=== PATIENT | female | born 1935 | race Caucasian/White ===

== ENCOUNTER 2023-06-06 04:32 | Day surgery (SDC) | payer MEDICARE, OTHER, SELFPAY ==
[2023-06-04 09:22] VITALS: BMI 27.9
--- NOTE | 2023-06-04 09:28 | PC.NURSE ---
Report to the Outpatient Waiting Room, entrance under the green pavilion located off [facility], at time ___0700____ on date __06/06/23 . Planned Procedure Time: ___0900 . Time changes happen often and if your time is changed the preop area will call you the afternoon before. - You and your visitor will be asked to self-screen and do not enter if you have any COVID symptoms. - A mask is optional within the hospital at this time. Patients may have clear liquids (water, carbonated beverages, clear teas, apple juice) until 3 hours prior to surgery (0600 AM) with a maximum of 20 ounces. - No food from midnight until time of surgery - Infants may have breast milk until 4 hours before surgery, formula 6 hours prior to surgery. - Children will be allowed to drink immediately following surgery. If applicable, please bring a bottle or sippy cup to assist with drinking. Juice, water, soda, and popsicles are readily available. For infants on formula, please bring formula the day of surgery. Pacifiers are allowed. Take the following medications with a SIP of water the morning of surgery: _AMLODIPINE, CITALOPRAM, METOPROLOL_ DO NOT STOP ANY OF YOUR OTHER PRESCRIPTION MEDICATIONS PRIOR TO SURGERY ?EXCEPT THE FOLLOWING Medications to discontinue per physician _PT STATES TO CONTINUE ASPIRIN PER DR. RODRIGUEZ_ Medications to discontinue per ANESTHESIA - _MULTIVITAMIN & SUPPLEMENTS OF TODAY Date to take last dose 06/04/23 Please no make-up, nail somali, hairspray, perfume, deodorant, or body powder the day of surgery. No jewelry (including any body piercings) or valuables the day of surgery, leave them at home. Please take a shower or bath the night before, or the morning of, surgery with an antibacterial soap. Wear comfortable, loose fitting clothing. Children are encouraged to wear pajamas. - Jewelry must be removed prior to entering the operating room. Rings and piercings that are not removed may be cut off. - The hospital will not accept responsibility for valuables. - Please leave all valuables, including medications, at home the day of surgery. If you are going home after surgery, a licensed caterpillar driver must drive you home. - NO public transportation without another adult if you receive anesthesia. - We recommend that an adult stay with you for 24 hours following discharge. - We also recommend that you do not drive, make important decision, drink alcoholic beverages, or take any drugs that were not prescribed by your health care provider for at least 24 hours after your discharge time. For Pediatric surgeries, we recommend two adults accompany the child home. Follow any additional instructions given to you from your surgeon. If you or anyone in your household have experienced Covid symptoms in the past week, please notify your surgeon or the nurse liaison at the phone number below for possible testing. Telephone instructions given to __PT__and asked if any additional questions and then verbalized understanding. Patient advised to call surgeon office or pre surgery nurse liaison [phone] if any additional questions.
[2023-06-06] VITALS (8 sets, daily range): BP systolic 127–175; BP diastolic 50–63; PULSE 54–64; RESP 12–18; TEMP 36.8–36.9; O2SAT 93–96
--- NOTE | 2023-06-06 07:15 | WPDHPUPDATE1 ---
History and Physical Update Update Date/Time: 06/06/23 07:15 History and Physical has been reviewed, including an updated exam of the patient. There are NO changes in the patient's condition. Risks, benefits, and alternatives have been discussed and questions answered. Patient agrees to proceed with procedure.
[2023-06-06] MEDS: LACTATED RINGERS 1,000 ML 30 ML IV CONT (07:57)
--- NOTE | 2023-06-06 09:18 | P.PNAN_ITS ---
Anes - Initial Pre Proc Eval Procedure: Operation Date: 06/06/23 09:00 Proposed Procedures p Excision of Neoplasm Right Nasal Ala with Frozen Section, Full Thickness Skin Graft or Local Tissue Transfer or Composite Cartilage Graft - Adair Reyes MD Date/Time: 06/06/23 09:18 Surgeon: Adair Reyes MD Pre Op Diagnosis: neoplasm right nasal ala Patient Data Age: 87 Gender: F Height: 1.59 m Weight: 70 kg Last Vital Signs Temp 98.3 F 06/06/23 07:09 Pulse 54 L 06/06/23 07:09 Resp 18 06/06/23 07:09 BP 175/56 H 06/06/23 07:09 Pulse Ox 96 06/06/23 07:09 O2 Del Method Room Air 06/06/23 07:09 Allergies Allergy/AdvReac Type Severity Reaction Status Date / Time latex AdvReac Itching Verified 06/06/23 07:39 Home Medications Medication Instructions Recorded Confirmed Type [facility] 1 tab-cap DAILY 06/04/23 06/06/23 History Shubham Q 10 200 mg DAILY 06/04/23 06/06/23 History amlodipine 5 mg tablet 5 mg DAILY 06/04/23 06/06/23 History aspirin 81 mg capsule 81 mg PO DAILY 06/04/23 06/06/23 History citalopram 10 mg tablet 10 mg DAILY 06/04/23 06/06/23 History folic acid 1 mg tablet 1 mg PO DAILY 06/04/23 06/06/23 History methotrexate sodium 2.5 mg tablet 5 mg WEEKLY 06/04/23 06/06/23 History metoprolol succinate 50 mg 50 mg PO DAILY 06/04/23 06/06/23 History tablet,extended release 24 hr multivitamin 1 tablet PO DAILY 06/04/23 06/06/23 History omega-3 fatty acids 2,000 mg PO DAILY 06/04/23 06/06/23 History pantoprazole 40 mg tablet,delayed 40 mg PO DAILY 06/04/23 06/06/23 History release rosuvastatin 10 mg tablet 10 mg DAILY 06/04/23 06/06/23 History Patient hx anesthesia problems: none Family hx anesthesia problems: none Results Review: All pre-operative results and documents have been reviewed as part of the pre- operative evaluation. [facility] Social History Social History Smoking status: Never smoker Second hand tobacco smoke exposure: No Alcohol intake: never Substance use: never Substance use type: does not use Living arrangements: with family Additional living arrangements comments: PT LIVES WITH SPOUSE Spiritual care concerns: No Anes - Eval Final PreProcedure Day of Procedure 06/06/23 09:18 Patient weight: normal Heart: regular rate and rhythm Lungs: clear to auscultation Airway: Mallampati scale class II Neurological: alert and oriented Last oral intake: >/= 8 hours ASA classification: III Emergent: no Anesthetic plan: proceed Anesthesia type and monitoring: general GIVS (LMA ) and standard monitoring Results Review: All pre-operative results and documents have been reviewed as part of the pre- operative evaluation. Informed Consent: The patient's anesthetic plan and its attendant risks and benefits were discussed with the patient/family/POA. Questions were solicited and answers provided to the satisfaction of the patient/family/POA.
[2023-06-06] MEDS: LIDO 1%/EPINEPHRINE 1:100,000 20 ML VIAL 5 ML INFILTRATE (10:30)
[2023-06-06] MEDS: BACITRACIN OINTMENT 15 GM TUBE 1 APPLIC TOPICAL (10:31)
--- NOTE | 2023-06-06 12:37 | W.PM.PROC2 ---
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 She was taken to the operating room where she was placed supine on the operating table. She was given IV sedation LMA was placed. Entire face and neck were prepped and draped in usual fashion. The site was carefully examined and marked for excision. This area was widely infiltrated with 1% lidocaine with epinephrine. The full-thickness skin ellipse was taken at the level of the perichondrium or muscle fascia and sent for frozen section with a marking at the most inferior aspect designated 12 o'clock. The pathologist revealed that the 6:00 margin was positive, that would been superior. A 2nd frozen section was cut and sent encompassing the 3 the 6-9 o'clock margin the 3 6 margin was inked and the 6:00 a.m. point was marked with suture. The pathologist reported that the new margin was free of tumor. A superiorly based nasolabial flap was designed elevated and rotated. This was carefully tailored and inset with some 4-0 Vicryl and closed with 5 0 nylon and chromic. There was minimal distortion to the right side of the nose it appeared airway appeared patent. There was no bleeding and she is discharged to the recovery room in stable condition she is being discharged home with a prescription for cephalexin for 5 days tramadol #8. Estimated Blood Loss 10 Drains No Packing No Pathology Yes Complications No immediate complications Condition Stable Disposition Same day
== END 2023-06-06 13:40 | disposition home or self-care (01) ==
PROVIDERS: PCP Family Medicine; Visit Provider Plastic Surgery
PROC: (CPT 14060; principal; 2023-06-06 09:00)
DX: C44.311 Basal cell carcinoma of skin of nose (principal); Z79.82 Long term (current) use of aspirin
CPT/HCPCS: 14060; 88305; 88331; A9270; J2704; J3010; J7120